=== PATIENT | male | born 1980 | race Caucasian/White ===

== ENCOUNTER 2025-03-02 10:12 | Emergency (ER) | payer BC, SELFPAY ==
[2025-03-02 10:19] VITALS: BP 136/96
--- NOTE | 2025-03-02 11:48 | ED.GENMED ---
History of Present Illness
General
Chief Complaint: Musculo-Skeletal Complaint
Source: patient
Exam Limitations: none
Time Seen by Provider: 03/02/25 10:56
Nursing documentation reviewed up to this point in time: agreed with
History of Present Illness
History of Present Illness:
44-year-old male presents to the ER for evaluation. Patient is an avid golfer and 5 days ago was golfing and felt sudden pain and numbness in his right wrist. Since that he has had pain to his volar aspect of his right wrist. He has been wearing
a brace and has been icing it. He has not tried NSAIDs. He is right-hand dominant. He denies any other injuries. He denies any fever or chills. He does feel that the area is mildly swollen.
Phy Exam
General Physical Exam
General Presentation: no apparent distress
General age: appears stated age
General Skin: warm and dry
General Habitus: normal
General Mental: alert
General Hydration: appears well hydrated
Neurological Exam
Neurological Exam: alert and oriented x3
Musculoskeletal Exam
Musculoskeletal Exam: other (Right upper extremity strong pulses tender throughout the volar wrist area mild swelling of the volar wrist area and first metacarpal normal cap refill normal sensation)
Skin Exam
Skin Exam: normal color and warm/dry
Psychiatric Exam
Psychiatric Exam: normal mood/affect
Course
Orders/Labs/Results
Orders:
Orders
03/02/25 11:48
Ibuprofen [Motrin] 600 mg PO NOW STA
Wrist, Right 3 Views [CR Wrist - Right Min 3 Views] Urgent
Comment:
Reason For Exam: trauma
Vital Signs
Initial and Last Documented VS:
Initial Vital Signs
Temp Pulse Resp BP Pulse Ox
98.4 F 94 18 136/96 98
03/02/25 10:19 03/02/25 10:19 03/02/25 10:19 03/02/25 10:19 03/02/25 10:19
Last Documented Vital Signs
Temp Pulse Resp BP Pulse Ox
98.4 F 94 18 136/96 98
03/02/25 10:19 03/02/25 10:19 03/02/25 10:19 03/02/25 10:19 03/02/25 11:50
MDM/Problems Addressed
Differential Diagnosis Includes:
not limited to: Tendinitis sprain strain fracture
MDM/Problems Addressed:
As documented patient was golfing several days ago and felt sudden pain in his right wrist tender to the volar aspect no actual trauma. X-ray shows 2 calcific densities in the lateral view possible avulsion fracture versus as discussed with
radiology tendon calcium. Patient has a splint in place that he applied at home and has significant relief we will have him keep this on keep immobilized until seen and eval by orthopedics hand.
*Radiology
Radiology exam reviewed: radiology read reviewed
*Pulse Oximetry
SaO2: 98
Oxygen Mode of Delivery: Room air
Patient hypoxic: no
*Critical Care Note
Total Time (30-74mins, 75-104mins- exclusive of procedures): Not Applicable
ED Attending Note
-
Portions of this chart may have been created with voice recognition software.� Occasional wrong word or��sound alike� substitutions may have occurred due to the inherent limitations of voice recognition software.
Discharge Plan
Departure
Patient Disposition: Home (Routine Discharge)
Date of Disposition: 03/02/25
Time of Disposition: 13:14
Patient with high blood pressure during this ER visit?: Yes
Condition: Fair
Covid-19: Not Applicable
Discharge Problem:
Acute wrist pain
Instructions: Muscle and Bone Pain (DC)
Referrals:
Leonel Young MD [Active, Orthopedics]
Emre Martins DO [Family Provider, Family Practice]
Activity Restrictions/Additional Instructions:
As discussed on your x-ray there are 2 calcific densities possible avulsion fracture versus calcium related to tendinitis. Please wear splint and keep immobilized until seen and evaluated by orthopedics in the next 2 days.
call today to make an appointment as soon as possible. Please continue to take ibuprofen every 8 hours with food.
Interventions
Interventions:
*Risk Screen - Suicide Last Done: 03/02/25 10:19
*General Assessment Last Done: 03/02/25 10:19
*Neglect/Abuse Screening Last Done: 03/02/25 10:19
*ED COVID-19 Vaccine History Last Done: 03/02/25 10:19
*ED Influenza Vaccine History Last Done: 03/02/25 10:19
[facility] Fall Risk Assessment Tool Last Done: 03/02/25 10:25
ED-Musculoskeletal Assessment Last Done: 03/02/25 10:30
Discharge Date and Time
Print Language: KENYAN
[2025-03-02] MEDS: MOTRIN 600 MG PO (11:58)
[2025-03-02 13:18] VITALS: BP 125/90
== END 2025-03-02 13:26 | disposition home or self-care (01) ==
LOC: EMR 10:12
PROVIDERS: EMERGENCY PHYSICIAN Emergency Medicine; FAMILY PHYSICIAN Family Medicine
DX: M25.531 Pain in right wrist (principal); R20.0 Anesthesia of skin
CPT/HCPCS: 99283; 73110